=== PATIENT | female | born 1990 | race Caucasian/White ===

== ENCOUNTER → 2025-03-29 | Day surgery (SDC) | payer OTHER ==
[2025-03-28 09:44] LABS: BASOPHILS % 0.4 % (0.0-1.0); EOSINOPHILS % 1.7 % (0.0-6.0); LYMPHOCYTES % 10.6 % (18.0-39.1); MONOCYTES % 5.1 % (4.4-11.3); NEUTROPHILS % 81.7 % (38.7-80.0); RED CELL DISTRIBUTION WIDTH 12.7 % (11.7-14.4)
[2025-03-28 10:08] LABS: EST GLOMERULAR FILTRATION RATE 119.0 ML/MIN (>=60)
[2025-03-28 10:33] LABS: INR 1.45
[~2025-03-29] MED LIST: B COMPLEX WITH1 EAC1 PO; BRAIN MIGHT-DH1 EACH PO; COREG3.125 MG PO; DULOXETINE HCL20 MG PO; FOLIC ACID0.4 MG PO; FUROSEMIDE40 MG PO; GABAPENTIN300 MG PO; HYDROCODON-ACE1 EA12 PO; HYDROXYZIN10 MG/5 ML PO; HYDROXYZINE PAM25 MG PO; IMMUNE SUPPORT PO; LIDOCAINE HCL 2% LOCAL INJ 5 ML SDV VIAL INJ ONE; METOPROLOL SUCC25 MG PO; MIDAZOLAM HCL 2 MG/2 ML VIAL ONE; MIDODRINE HCL2.5 MG PO; MULTI-VITAMIN1 EACH PO; PANTOPRAZOLE SO40 MG PO; PROPOFOL IV EMULSION 10 MG/ML 20 ML VIAL ONE; VIT D3 PO; VIT K PO
[2025-03-29] MEDS: LACTATED RINGER'S 1,000 ML ONE (13:51)
[2025-03-29 14:28] VITALS: TEMP 98.5
[2025-03-29 14:55] VITALS: BP 97/70; PULSE 68; RESP 16; O2SAT 97
== END | disposition home or self-care (01) ==
LOC: OR 12:14
PROVIDERS: ATTEND Internal Medicine Gastroenterology
DX: K74.60 Unspecified cirrhosis of liver (principal); I85.10 Secondary esophageal varices without bleeding; K31.7 Polyp of stomach and duodenum; K29.70 Gastritis, unspecified, without bleeding; K76.6 Portal hypertension; K31.89 Other diseases of stomach and duodenum; K21.9 Gastro-esophageal reflux disease without esophagitis; K44.9 Diaphragmatic hernia without obstruction or gangrene; K62.5 Hemorrhage of anus and rectum; D64.9 Anemia, unspecified; E87.1 Hypo-osmolality and hyponatremia; R76.8 Other specified abnormal immunological findings in serum; I10 Essential (primary) hypertension; E78.5 Hyperlipidemia, unspecified; N39.0 Urinary tract infection, site not specified; G62.9 Polyneuropathy, unspecified; F41.9 Anxiety disorder, unspecified; Z01.810 Encounter for preprocedural cardiovascular examination; Z01.812 Encounter for preprocedural laboratory examination; Z79.1 Long term (current) use of non-steroidal anti-inflammatories (NSAID); Z79.899 Other long term (current) drug therapy; Z87.898 Personal history of other specified conditions; Z87.01 Personal history of pneumonia (recurrent)
CPT/HCPCS: 36415; 43239; 80053; 81025; 85025; 85610; 85730; 93005; J2003; J2250; J2704; J7121